=== PATIENT | male | born 1960 | race Hispanic/Latino ===

== ENCOUNTER 2023-02-16 05:46 | Day surgery (SDC) | payer OTHER ==
[2023-02-16] VITALS (11 sets, daily range): BP systolic 115–129; BP diastolic 57–79; PULSE 59–76; RESP 12–18
[~2023-02-16] VITALS: Ht 162.6 cm; Wt 74.5 kg
[~2023-02-16 05:46] MED LIST: METF-446 PO; OMEP20CA12 PO; ROSU40TA21 PO; SUCR1TAB2 PO
[2023-02-16] MEDS ORDERED: 0.9%NACL 1000ML 1,000 ML IV ONE (06:02)
[2023-02-16] MEDS ORDERED: PROPOFOL 10 MG/ML 20ML VIAL IV ONE (08:00)
== END 2023-02-16 09:40 | disposition home or self-care (01) ==
LOC: DAH 05:46
PROVIDERS: ATTEND Internal Medicine Gastroenterology
DX: D37.1 Neoplasm of uncertain behavior of stomach (principal); K29.50 Unspecified chronic gastritis without bleeding; K21.00 Gastro-esophageal reflux disease with esophagitis, without bleeding; K59.04 Chronic idiopathic constipation; K86.89 Other specified diseases of pancreas; G47.30 Sleep apnea, unspecified; E11.9 Type 2 diabetes mellitus without complications; E78.5 Hyperlipidemia, unspecified; Z98.890 Other specified postprocedural states; Z80.3 Family history of malignant neoplasm of breast; Z79.84 Long term (current) use of oral hypoglycemic drugs; Z79.899 Other long term (current) drug therapy
CPT/HCPCS: 43237; 82948; 43239; J7030 ×2; J2704; A4620; A4215 ×2; A4223; A7002; A4222; A4221; A4663; A4606; 43259; J3490